=== PATIENT | male | born 1960 | race Caucasian/White ===

== ENCOUNTER → 2019-06-06 13:23 | Outpatient (BNVA) | payer MEDICARE, OTHER, SELFPAY | PROVIDERS: PCP Nurse Practitioner Family; Visit Provider Urology | DX: N99.89 Other postprocedural complications and disorders of genitourinary system (principal); R31.0 Gross hematuria; N40.1 Benign prostatic hyperplasia with lower urinary tract symptoms; N13.8 Other obstructive and reflux uropathy; R39.9 Unspecified symptoms and signs involving the genitourinary system | CPT/HCPCS: 81001 ==

== ENCOUNTER 2019-09-14 13:12 | Observation (INO) | payer MEDICARE, OTHER, SELFPAY ==
[2019-09-13 15:10] VITALS: BMI 32.1
[2019-09-14] VITALS (13 sets, daily range): BP systolic 117–154; BP diastolic 76–106; PULSE 52–80; RESP 12–20; TEMP 36.1–37.1; O2SAT 95–98
--- NOTE | 2019-09-14 10:59 | ANES.PREANE2 ---
Pre-Anesthetic Assessment Pre-Anesthetic Assessment: Height/Weight: Height 1.88 m Weight 113.398 kg Temp Pulse Resp BP Pulse Ox 98.4 F 72 18 141/95 96 09/14/19 10:27 09/14/19 10:27 09/14/19 10:27 09/14/19 10:27 09/14/19 10:27 Preop Diagnosis: BPH/obstruction Proposed Procedure: Operation Date: 09/14/19 11:30 Proposed Procedures p Transurethral Resection Of Prostate 35204/N40.1/N13.8(Not Applicable) - Ricky Mello MD s Cystoscopy 40578/N40.1/N13.8(Not Applicable) - Ricky Mello MD Familial anesthetic complications: None Was Beta Tiffanie taken within 24 hours: Yes Last intake: Intake NPO > 8 hrs Last Liquid Date 09/13/19 Last Solid Date 09/13/19 Social: Social History: No alcohol and No tobacco Exam: Pre-Anes Outpt Exam: alert, oriented x 3, clear to auscultation bilaterally and regular rate & rhythm Airway: Cervical ROM: WNL MP: 3 Additional comments: bridge (upper) Pulmonary: Pulmonary: None reported CV/HEM: CV/HEM: HTN : : None reported Hepatic: Hepatic: None reported GI: GI: None reported Metabolic: Metabolic: Hyperlipidemia, Morbid obesity and Thyroid Musc/skel: Musc/skel: None reported Neuropsych: Neuropsych: None reported Anesthetic Plan: ASA status: 2 Anesthesia: General Risk of > 500 ml blood loss (7ml/kg in children): No PFSH Anesthesia PFSH: Social History (Updated 09/06/19 @ 10:27 by NERY Warren) Smoking and tobacco status: never smoked Alcohol intake: current Alcohol intake frequency: few times a month Adopted: No Caregiver/support person: No Lives independently: No Household members: spouse Marital status: Current occupational status: retired History of recent travel: No Current gender identity: Male Data Anesthesia Cardiac Studies: No Data to Display
[2019-09-14 11:04] LABS: Basophils # 0.1 10^3/uL (0.0-0.1); Eosinophils # 0.2 10^3/uL (0.0-0.8); Hematocrit 51.8 % (42.0-52.0); Hemoglobin 17.1 g/dL (11.7-16.6); Lymphocytes # 2.1 10^3/uL (0.8-4.8); Mean Corpuscular Hemoglobin 30.3 pg (28.0-34.0); Mean Corpuscular Volume 91.7 fL (80-94); Mean Platelet Volume 10.2 fL (7.4-10.4); Monocytes # 0.5 10^3/uL (0.2-0.9); Monocytes % 8.9 %; Neutrophils # 3.1 10^3/uL (1.8-7.7); Neutrophils % 51.9 %; Nucleated Red Blood Cells % 0 %; Platelet Count 201 10^3/cmm (130-400); Red Blood Count 5.65 10^6/uL (4.1-5.3); Red Cell Distribution Width 11.8 % (12.1-15.1); White Blood Count 6.1 10^3/uL (4.0-10.0)
--- NOTE | 2019-09-14 11:34 | W.PM.OPSUD ---
Surgery/Procedure H&P Update DATE OF PROCEDURE: September 14, 2019 DATE H&P PERFORMED: 09/06/19 H&P UPDATE INFORMATION: I have reviewed H&P completed within last 30 days, I have examined patient prior to procedure and No changes to prior documentation PREOP DIAGNOSIS: BPH/obstruction PLANNED PROCEDURE: Operation Date: 09/14/19 11:30 Proposed Procedures p Transurethral Resection Of Prostate 32349/N40.1/N13.8(Not Applicable) - Ricky Mello MD s Cystoscopy 53331/N40.1/N13.8(Not Applicable) - Ricky Mello MD
--- NOTE | 2019-09-14 11:38 | PM.OP ---
Operative Report Date of procedure: September 14, 2019 Pre-op Diagnosis: BPH/obstruction Post-op diagnosis: same Procedure Done: Cystoscopy, transurethral resection/vaporization of the prostate Pathology: Prostate chips Surgeon: Riaz Anesthesia: General Urine output: Not measured Complications: None Condition: stable Disposition: PACU Brief History: Aleksandr is a very pleasant 59-year-old white male who I evaluated first in May of this year with complaints of progressive bladder outlet obstructive symptoms. Work-up included a cystoscopy that showed evidence of moderate to severe obstructive changes with significant trabeculation and a trilobar enlargement of the prostate with a tightly packed ball-valve type median lobe. At our initial visit we discussed medical versus surgical options and he elected an attempt at medical therapy. On follow-up earlier this month he had noted significant improvement on dual medical therapy of TAMSULOSIN previously increased to twice a day and the addition of FINASTERIDE. He had done a lot of research though and decided that he would prefer not to be on medicine long-term. For that reason he elected to proceed with surgical intervention and after thorough discussion of the options he elected TURP/TUVP. Procedure: After routine preoperative evaluation examination and obtaining of informed consent he was taken to the operating suite on 09/14/2019 where general anesthesia was administered without difficulty after appropriate timeout was performed, SCDs confirmed to be functioning, preoperative antibiotics administered, beta-nelson protocol confirmed. Prepped and draped in the usual sterile fashion in dorsolithotomy position pain careful attention to avoiding pressure points. 21 Anguillan cystoscope with 30 degree lens was introduced into the urethral meatus and advanced into the bladder under videoscopy. Bladder was systematically examined with findings as above. The orifices were well away from the bladder neck. Urethra was calibrated with Collins sounds and easily accommodated 30 Anguillan. 2% lidocaine jelly was instilled into the urethra and then the 25 Anguillan continuous flow resectoscope sheath with visual obturator in place was advanced into the bladder under videoscopy. The gyrus bipolar system was utilized for resection. Initial resection was begun with the supersect loop with focus on the intravesically protruding median lobe. It was resected down to the bladder neck pain careful attention to avoiding the area of the trigone. Most of the obstructing tissue was in fact the median lobe. The lateral lobes were then resected from the bladder neck out to the verumontanum first from the 12:00 to the 5 o'clock position and then the 12:00 to the 7 o'clock position. The remaining floor tissue was then resected in a similar fashion. Intermittently the button probe was utilized for fulguration and vaporization. There remained a small amount of tissue near the verumontanum this was carefully trimmed away avoiding straining distally to the verumontanum. The button probe was then utilized for sculpting of the prostate and obtaining meticulous hemostasis. All chips were removed from the bladder with the [employer] evacuator. At the completion of the procedure hemostasis was confirmed, the prostatic fossa was wide open, the orifices and tissue distal to the verumontanum was undisturbed. Bladder drained with a 20 Anguillan three-way Garcia catheter with 30 cc placed in the balloon. Light CBI was initiated. Tolerated the procedure well without complications and was awakened in the operating room and returned to the care of room in stable condition.
[2019-09-14] MEDS: levofloxacin-dextrose 5 % 500 MG/100 ML PREMIX 100 MG IV (11:58)
--- NOTE | 2019-09-14 13:05 | SUR.PHASEI ---
1302 PATIENT TO PACU AT THIS TIME FROM OR. RR EVEN AND UNLABORED. PWD. RESPONSIVE TO VERBAL STIMULI. CORADO CATH IN PLACE WITH CBI, CLEAR YELLOW URINE NOTED.
--- NOTE | 2019-09-14 13:27 | SUR.PHASEI ---
1327 PATIENT TO MED SURG AT THIS TIME FROM PACU. RR EVEN AND UNLABORED. CORADO CATH IN PLACE, DRAINING CLEAR, YELLOW URINE. NO DISTRESS. PAIN 09/23.
[2019-09-14] MEDS: dextrose 5%-ns + KCl 20 20 MEQ/1,000 ML BAG 100 MEQ IV (15:07)
[2019-09-14] MEDS: HYDROcodone-acetaminophen 5-325 mg Tablet 1 TAB PO ×2 (17:28→23:25)
[2019-09-14] MEDS: phenazopyridine 100 mg Tablet 200 MG PO (17:28)
[2019-09-14] MEDS: tamsulosin 0.4 mg Capsule PO (17:28)
--- NOTE | 2019-09-14 19:00 | PC.NURSE ---
Shift Assessment Pt has done well postop. Pt has had approximately 2400 mL of CBI fluid intake and 3250 mL output. Output has been clear with no evidence of blood or clots. Pain is well controlled with [place].
--- NOTE | 2019-09-14 20:29 | PC.NURSE ---
HS Meds Pt. refused HS Lipitor stating I took my cholesterol medicine this morning before coming into the hospital.
[2019-09-15] VITALS (7 sets, daily range): BP systolic 123–144; BP diastolic 81–93; PULSE 75–83; RESP 16–18; TEMP 36.6–37.4; O2SAT 93–96
[2019-09-15] MEDS: dextrose 5%-ns + KCl 20 20 MEQ/1,000 ML BAG 100 MEQ IV (03:53)
--- NOTE | 2019-09-15 06:35 | PC.NURSE ---
CBI Pt. has had CBI running extremely slow this shift. No blood clots noted, no manual irrigation. No complaints of pain.
--- NOTE | 2019-09-15 07:53 | ANE.PACU2 ---
 Inpatient post-anesthesia follow up: Airway intact: Yes Vital signs: Temperature 98.0 F Pulse Rate 75 Respiratory Rate 18 Blood Pressure 123/86 Pulse Oximetry 95 Oxygen Delivery Me thod [ Room Air Current Rate & Del blayne] Oxygen Delivery Me thod Room Air Oxygen Flow Rate Fraction of Inspir ed Oxygen Hydration adequate: Yes Nausea and vomiting: No Pain level: 1 Mental status: Baseline
[2019-09-15] MEDS: levothyroxine 150 mcg Tablet PO (08:33)
[2019-09-15] MEDS: tamsulosin 0.4 mg Capsule PO (08:33)
[2019-09-15] MEDS: metoprolol succinate ER (24 HR) 25 mg Tablet PO (08:33)
[2019-09-15] MEDS: phenazopyridine 100 mg Tablet 200 MG PO ×2 (08:37→13:00)
--- NOTE | 2019-09-15 08:56 | PC.NURSE ---
Ptient pedro removed. Pt shwetha well. Patient given Urinal and instructed to notify nursing when he woids. Six bottle urine collection set up in room. No clots, or noted blood in pedro bag or with removal of cath. Pericare given.
--- NOTE | 2019-09-15 10:10 | PC.CHAP ---
Pastoral Care Encounter/Spiritual Assessment Type of Contact [] Declined staff interpreter visit [] Patient/Family/Request visit [] Outpatient visit [] Follow-up visit [] Physician referral [] Code/Alert [x] Routine visit [] Staff referral [] Actively dying [] Patient sleeping [] Family support [] [] Out of room [] Palliative care [] [] Receiving care in room [] Pre-surgical visit [] Trauma [] Long length of stay [] ICU visit [] Other: Relational/Emotional Strength [] Patient feels connected with others/family/visitors/staff [] Distress [] Loneliness/isolation [] Abandonment Spirituality of Patient [] Person of Any [] Attends Roman Catholic of their Any [x] Believes in Prayer [] Reads Bible or Lutheran materials [] There are Spiritual issues to be addressed Agronomy Advisor Interventions [x] Prayer [] Active listening [] Non-anxious presence [] Spiritual/emotional support [] Crisis/trauma care [] Spiritual counseling [] Bereavement support [] Provided bereavement packet [] Provided Bible/devotional materials [] Provided toy/stuffed animal, coloring book to patient or family member [] Provided Communion [] Anointing/[place] [] Salvation [x] Completed spiritual assessment [] Other: Impact on Illness or Injury [] Angry [] Fearful [] Anxious [] Often cries [] Exhaustion [] Unable to work [] Unable to attend anabaptism [] Unable to walk/stand [] Unable to read [] Unable to drive [] Unable to eat/drink [] Unable to sleep [] Unable to be with family [] Patient intubated [] Other: Summary Patient going home today. Patient feels better Time spent with patient 10 min
--- NOTE | 2019-09-15 13:43 | PC.NURSE ---
Patient rec bladder scan after voiding.. 15mls of urine in total scanned. Pt denies any bladder distention, tenderness and pain. Six void cup collected.
--- NOTE | 2019-09-15 15:31 | PM.DCS ---
Discharge Providers Date of Admission: 09/14/19 13:12 Date of Discharge: September 15, 2019 Attending Provider at Admission: Ricky Mello MD Attending Provider at Discharge: Ricky Mello MD Primary Care Provider: Niru Guzman Reason for Visit Reason for Visit: Reason For Visit: PROSTATE Hospital Course Discharge Summary: Admitted on the day of the procedure which went well. A primary tissue obstructing his prostatic lumen was the median lobe which was resected down to the circular fibers of the bladder neck and to the floor of the prostate. He did have some lateral lobe hypertrophy which was vaporized. Did well during and after surgery. On postoperative day 1 he had a successful voiding trial with low PVR, adequate emptying, adequate stream and no significant bleeding. Discharged on postoperative day 1 afternoon in stable condition. Physical Exam Const: COMMON NORMALS: no apparent distress, alert and well nourished GENERAL APPEARANCE: well kempt and well developed ORIENTATION/CONSCIOUSNESS: not confused Resp: COMMON NORMALS: normal respiratory effort EFFORT & INSPECTION: No labored and No actively coughing Neuro: COMMON NORMALS: no focal motor deficits SENSORIUM/ORIENTATION: Yes alert Psych: COMMON NORMALS: mental status grossly normal APPEARANCE: Yes grossly normal and Yes well kempt ATTITUDE: Yes calm and Yes engaged Urinary Catheter Management^: 3-way Urethral CBI: Cath Placed During This Visit: yes, but has since been removed by the nurse Reason for Continuing Indwelling Catheter: Perioperative Use in Selected Surgeries Urinary Catheter Date of Insertion: 09/14/19 Urinary Catheter Time of Insertion: 12:00 Date Urinary Catheter Removed: 09/15/19 Time Urinary Catheter Discontinued: 09:50 Discharge Data Data Completed and Pending: Pending at discharge Category Date Time Status Pathology: Surgic al [PTH] Routine Pth 09/15/19 08:43 Received Vitals: Last Vital Signs Temp 99.3 F 09/15/19 11:34 Pulse 80 09/15/19 11:34 Resp 18 09/15/19 11:34 BP 124/81 09/15/19 11:34 Pulse Ox 96 09/15/19 11:34 Discharge Plan Discharge Patient Disposition: Home, Self-Care Condition: Stable Prescriptions: Continued acyclovir 5 % ointment 1 applic TOPICAL 6XD PRN (Reason: Pain) RF: 0 acyclovir 400 mg tablet 400 mg PO BID PRN (Reason: HERPES) RF: 0 simvastatin 40 mg tablet 40 mg PO QDAY RF: 0 levothyroxine 150 mcg capsule 150 mcg PO QDAY RF: 0 vitamin B complex [B Complex-Vitamin B12] Tablet 1 tab PO QDAY RF: 0 temazepam 15 mg capsule 15 mg PO DAILY RF: 0 omega-3 fatty acids 500 mg capsule 500 mg PO QDAY RF: 0 metoprolol succinate 25 mg tablet extended release 24 hr 25 mg PO QDAY RF: 0 tamsulosin 0.4 mg capsule 0.4 mg PO BID Qty: 180 RF: 3 Held vitamin E (dl, acetate) 400 unit capsule 400 unit PO QDAY RF: 0 Hold Instructions: Resume on 09/22/19. Discharge Orders: Discharge Order (Routine); Ordered 09/15/19 Ordered By: Ricky Mello Referrals: Ricky Mello MD [Physician] - (3 months with aua score and pvr) Discharge Diet: Usual diet Discharge Activity: Limit activity as instructed Discharge Attestations Time Spent in Discharge Care*: less than 30 min Quality Metrics Clinical Quality Measures During this hospital stay, did patient experience: None Coding Level of Care Code Acute Marble Installation Helper for Maddie Stone
== END 2019-09-15 16:55 | disposition home or self-care (01) ==
LOC: MEDSURG 13:13
PROVIDERS: Admitting Provider Urology; PCP Nurse Practitioner Family; Visit Provider Urology
PROC: 0VT08ZZ Resection of Prostate, Via Natural or Artificial Opening Endoscopic (ICD-10-PCS; CPT 52601; principal; 2019-09-14 11:30)
PROC: 0TJB8ZZ Inspection of Bladder, Via Natural or Artificial Opening Endoscopic (ICD-10-PCS; CPT 52000; 2019-09-14 11:30)
DX: N40.1 Benign prostatic hyperplasia with lower urinary tract symptoms (principal); N13.8 Other obstructive and reflux uropathy; I10 Essential (primary) hypertension; E78.5 Hyperlipidemia, unspecified; E66.01 Morbid (severe) obesity due to excess calories; Z68.32 Body mass index [BMI] 32.0-32.9, adult
CPT/HCPCS: 52601; 12345; 36415; 85025; 88305; 96361; 96365; G0378; J1956; J2001; J2370; J2704; J3010; J3490

== ENCOUNTER → 2019-12-18 08:55 | Outpatient (BNVA) | payer MEDICARE, OTHER, SELFPAY | PROVIDERS: PCP Nurse Practitioner Family; Visit Provider Urology | DX: N40.1 Benign prostatic hyperplasia with lower urinary tract symptoms (principal); N13.8 Other obstructive and reflux uropathy; R39.9 Unspecified symptoms and signs involving the genitourinary system | CPT/HCPCS: 81001 ==

== ENCOUNTER → 2020-06-19 08:33 | Outpatient (BNVA) | payer MEDICARE, OTHER, SELFPAY | PROVIDERS: PCP Nurse Practitioner Family; Visit Provider Urology | DX: N40.1 Benign prostatic hyperplasia with lower urinary tract symptoms (principal); N13.8 Other obstructive and reflux uropathy | CPT/HCPCS: 81003 ==

== ENCOUNTER → 2020-08-29 08:53 | Outpatient (BNVA) | payer MEDICARE, OTHER, SELFPAY | PROVIDERS: PCP Nurse Practitioner Family; Referring Provider Family Medicine; Visit Provider Specialist | DX: M65.332 Trigger finger, left middle finger (principal) | CPT/HCPCS: 73130; 87635 ==

== ENCOUNTER 2020-09-03 05:56 | Day surgery (SDC) | payer MEDICARE, OTHER, SELFPAY ==
[2020-09-02 15:22] VITALS: BMI 29.9
[2020-09-03] VITALS (7 sets, daily range): BP systolic 136–174; BP diastolic 95–109; PULSE 64–72; RESP 16–18; TEMP 36.2–36.6; O2SAT 92–98
--- NOTE | 2020-09-03 06:27 | ANES.PREANE2 ---
Pre-Anesthetic Assessment Pre-Anesthetic Assessment: Height/Weight: Height 1.91 m Weight 108.862 kg Preop Diagnosis: Left long trigger finger Proposed Procedure: Operation Date: 09/03/20 07:00 Proposed Procedures p Trigger Finger Release left long(Left) - Niru Juarez MD Was Beta Tiffanie taken within 24 hours: Yes Was Clonidine taken within 24 hours: N/A Social: Social History: No alcohol and No tobacco Exam: Pre-Anes Outpt Exam: alert, oriented x 3, clear to auscultation bilaterally and regular rate & rhythm Airway: Submandibular: WNL Cervical ROM: WNL MP: 2 Dentition: Full CV/HEM: CV/HEM: HTN GI: GI: GERD Metabolic: Metabolic: Morbid obesity and Thyroid Anesthetic Plan: ASA status: 3 Anesthesia: MAC and Regional (specify below) (Qiana clark) Risk of > 500 ml blood loss (7ml/kg in children): No PFSH Anesthesia PFSH: Medical History BPH with obstruction/lower urinary tract symptoms GERD (gastroesophageal reflux disease) Gilbert disease Gross hematuria Hemochromatosis Hyperlipemia Hypothyroid Insomnia Lower urinary tract symptoms (LUTS) Surgical History H/O neck surgery History of back surgery History of foot surgery S/P appendectomy Status post transurethral resection of prostate Family History Father , AT AGE 70 DROWNED,BOATING ACCIDENT No problems noted. Mother , AT AGE 72 SMALL CELL LUNG CANCER Cancer Social History Smoking and tobacco status: never smoked Alcohol intake: current Alcohol intake frequency: few times a month Adopted: No Caregiver/support person: No Lives independently: No Household members: spouse Marital status: Current occupational status: retired History of recent travel: No Current gender identity: Male Data Anesthesia Cardiac Studies: No Data to Display
[2020-09-03] MEDS: acetaminophen 1,000 MG/100 ML PIGGYBACK 400 MG IV (06:50)
[2020-09-03] MEDS: sodium chloride 0.9% 1,000 ML 30 ML IV (06:50)
--- NOTE | 2020-09-03 06:50 | W.PM.OPSUD ---
Surgery/Procedure H&P Update DATE OF PROCEDURE: September 03, 2020 DATE H&P PERFORMED: 08/29/20 H&P UPDATE INFORMATION: I have reviewed H&P completed within last 30 days, I have examined patient prior to procedure, No changes to prior documentation and H&P is in [facility] EMR on date indicated PREOP DIAGNOSIS: Left long trigger finger PLANNED PROCEDURE: Operation Date: 09/03/20 07:00 Proposed Procedures p Trigger Finger Release left long(Left) - Niru Juarez MD Related Problem List Diagnoses (1) Trigger finger, left middle finger:
--- NOTE | 2020-09-03 08:15 | PM.OP ---
Operative Report Date of procedure: September 03, 2020 Pre-op Diagnosis: Left long trigger finger Post-op diagnosis: same Procedure Done: Left long finger trigger release Implants: None Pathology: none sent Surgeon: Niru Juarez Senior Research Executive: None Anesthesia: MAC (With Marquette block) Estimated blood loss (mL): 5 Tourniquet time (min): 27 Tourniquet time: 250 mmHg IV fluids (mL): 700 Urine output (mL): 0 Complications: None Findings: Triggering left long trigger finger. No obvious tendon damage Condition: stable Disposition: PACU (Then to same day and discharged home) Brief History: This 60-year-old gentleman presented with complaints of significant triggering of his left long finger. This was painful for him and was limiting his activities. He wished to proceed with operative intervention in the form of trigger finger release. Procedure: Patient was brought to the operating theater. He was placed on the operating room table. A Marquette block was administered without difficulty. Patient tolerated it well. Ancef 2 g was administered as well as 1 g of Ofirmev. A tourniquet was placed high on the arm and was elevated for the Marquette block. This followed exsanguination of the arm. Tourniquet time was 27 minutes at 250 mmHg. Surgical pause was performed prior to commencement of the surgical procedure. At the time of the surgical pause we identified the site and side of surgery. We also identified the patient's identity and appropriate administration of IV antibiotics. Following the surgical pause, an incision was madealong the distal palmar crease beneath the long finger. Dissection continued through the skin to the subcutaneous tissues using a scalpel. Blunt dissection was then utilized to spread soft tissues and allow access to the A1 beatriz which was easily identified. It was then incised longitudinally and sharply using a knife. This was accomplished without difficulty and atraumatically. Once the A1 beatriz was released, tendons were brought up out of the wound and evaluated. There were no gross masses on the tendons. Tendons were returned to normal position. We then irrigated the wound and subsequently closed it with 3-0 nylon with an interrupted mattress type suture. Following closure of the wound, the wound was injected with ropivacaine plain into the subcutaneous tissues as a local anesthetic. Sterile dressing was then placed consisting of OpSite, fluffed fluffs, sterile soft roll, and an Sadiq wrap. The patient was returned to recovery in satisfactory condition. He will be discharged home to follow-up with me in the office. There were no complications and no specimens. Associated Problem List Diagnoses (1) Trigger finger, left middle finger:
--- NOTE | 2020-09-03 17:16 | ANE.PACU2 ---
Inpatient post-anesthesia follow up: Airway intact: Yes Vital signs: Temperature 97.9 F Pulse Rate 64 Respiratory Rate 16 Blood Pressure 144/100 Pulse Oximetry 97 Oxygen Delivery Me thod Room Air Oxygen Flow Rate Fraction of Inspir ed Oxygen Hydration adequate: Yes Nausea and vomiting: No Pain level: 1 Mental status: Baseline
== END 2020-09-03 08:30 | disposition home or self-care (01) ==
PROVIDERS: PCP Nurse Practitioner Family; Visit Provider Specialist
PROC: (CPT 26055; principal; 2020-09-03 07:00)
DX: M65.332 Trigger finger, left middle finger (principal); I10 Essential (primary) hypertension; K21.9 Gastro-esophageal reflux disease without esophagitis; E66.01 Morbid (severe) obesity due to excess calories; Z68.30 Body mass index [BMI] 30.0-30.9, adult; N40.1 Benign prostatic hyperplasia with lower urinary tract symptoms; N13.8 Other obstructive and reflux uropathy; E78.5 Hyperlipidemia, unspecified; E03.9 Hypothyroidism, unspecified
CPT/HCPCS: 26055; 96365; J0690; J2250; J2704; J3010; J3490; J7030

== ENCOUNTER 2022-07-23 11:08 | Outpatient (CLI) | payer MEDICARE, OTHER, SELFPAY ==
[2022-07-28 18:46] LABS: Calcium-Oxalate 1.93 (<2.00); Uric Stone 2.33 (<2.00); Urine Ammonia 24 Hour 33 mEq/day (14-62); Urine Citric Acid 24 Hour 820 mg/day (>320); Urine Phosphorus 24 Hour 1289 mg/day (<1100); Urine Potassium 24 Hour 53 mEq/day (19-135); Urine Sulfate 24 Hour 19 mmol/day (<30)
== END 2022-07-23 11:09 | disposition home or self-care (01) ==
LOC: LAB 11:31
PROVIDERS: PCP Nurse Practitioner Family; Visit Provider Physician Assistant
DX: N20.1 Calculus of ureter (principal)
CPT/HCPCS: 81003; 82131; 82140; 82340; 82436; 82507; 82570; 83735; 83935; 84300

== ENCOUNTER → 2023-07-27 15:12 | Outpatient (BNVA) | payer MEDICARE, OTHER, SELFPAY | PROVIDERS: PCP Nurse Practitioner Family; Visit Provider Orthopaedic Surgery | DX: M54.9 Dorsalgia, unspecified (principal); M48.062 Spinal stenosis, lumbar region with neurogenic claudication | CPT/HCPCS: 72110; 99204 ==

== ENCOUNTER → 2023-09-09 08:10 | Outpatient (BNVA) | payer MEDICARE, OTHER, SELFPAY | PROVIDERS: PCP Nurse Practitioner Family; Visit Provider Orthopaedic Surgery | DX: M54.9 Dorsalgia, unspecified (principal); M48.062 Spinal stenosis, lumbar region with neurogenic claudication | CPT/HCPCS: 80053; 81001; 85025; 99214 ==

== ENCOUNTER 2023-10-08 05:39 | Day surgery (SDC) | payer MEDICARE, OTHER, SELFPAY ==
[2023-10-08] VITALS (10 sets, daily range): BP systolic 119–136; BP diastolic 79–95; PULSE 69–83; RESP 12–18; TEMP 36.1–36.7; O2SAT 92–97; BMI 31.2
--- NOTE | 2023-10-08 | XR_ITS ---
WS: [id number] Exam: XR lumbar spine 2-3V* [id number] Date/Time of Exam: 10/08/2023 12:00 AM Reason For Exam: ANA PICS Intraoperative AP C-arm images of the lower lumbar spine are submitted. Images were obtained for preo p localization purposes.
[2023-10-08] MEDS: sodium chloride 0.9% 1,000 ML 30 ML IV (06:35)
--- NOTE | 2023-10-08 06:37 | ANES.PREANE2 ---
Pre-Anesthetic Assessment Height/Weight: Height 1.91 m Weight 113.398 kg Temp Pulse Resp BP Pulse Ox O2 Del Method 98.0 F 69 18 136/84 96 Room Air 10/08/23 06:12 10/08/23 06:12 10/08/23 06:12 10/08/23 06:12 10/08/23 06:12 10/08/23 06:13 Preop Diagnosis: Lumbar stenosis neurogenic claudication Operation Date: 10/08/23 07:00 Proposed Procedures p Lumbar Spine Decompression L3-4, L4-5(Not Applicable) - Isaak Grimaldo, DO Familial anesthetic complications: None Was Beta Tiffanie taken within 24 hours: N/A Was Clonidine taken within 24 hours: N/A Last intake: Intake Last Liquid Date 10/07/23 Last Liquid Time 19:00 Last Solid Date 10/07/23 Last Solid Time 19:00 Social No alcohol and No tobacco Exam alert, oriented x 3, clear to auscultation bilaterally and regular rate & rhythm Airway Mallampati: Class II Dentition: other (bridge) Pulmonary Asthma (hasn't required prn inhaler use in several days) CV/HEM Hypertension GI Gastroesophageal Reflux Disease Metabolic Hyperlipidemia and Thyroid Disease Anesthetic Plan ASA status: 2 Anesthesia: General Risk of > 500 ml blood loss (7ml/kg in children): No Medications/Allergies Home Medications Medication Instructions Recorded Confirmed Last Taken Type metoprolol succinate 25 mg 25 mg PO QDAY 06/06/19 10/08/23 10/08/23 04:00 History tablet,extended release 24 hr vitamin B complex (B 1 tab PO QDAY 06/06/19 10/07/23 10/07/23 History Complex-Vitamin B12 tablet) temazepam 15 mg capsule 15 mg PO .prn 12/18/19 10/07/23 10/07/23 History levothyroxine 150 mcg capsule 137 mcg PO QDAY 06/19/20 10/07/23 10/07/23 History omeprazole 20 mg capsule,delayed 20 mg PO DAILY 09/02/20 10/07/23 10/07/23 History release albuterol sulfate 90 mcg/actuation 2 puff inhalation Q6H PRN Allergy 10/01/23 10/07/23 10/06/23 History aerosol inhaler Symptoms atorvastatin 40 mg tablet 40 mg PO DAILY 10/01/23 10/07/2324 History cetirizine 10 mg tablet 10 mg PO DAILY 10/01/23 10/07/23 10/07/23 History divalproex 500 mg tablet,extended 500 mg PO DAILY 10/01/23 10/07/23 10/06/23 History release 24 hr losartan 50 mg tablet 50 mg PO DAILY 10/01/23 10/07/23 10/07/23 History valacyclovir 500 mg tablet 500 mg PO DAILY 10/01/23 10/07/23 10/07/23 History Allergies Allergy/AdvReac Type Severity Reaction Status Date / Time No Known Allergies Allergy Verified 10/08/23 06:06 Current Medications Generic Name Dose Route Start Last Admin Trade Name Freq PRN Reason Stop Dose Admin Sodium Chloride 1,000 mls @ 30 mls/hr 10/08/23 06:00 10/08/23 06:35 Sodium Chloride 0.9% IV 10/09/23 05:59 30 mls/hr .Q24H ARIADNA Administration PFSH Anesthesia Medical History GERD (gastroesophageal reflux disease) Hypothyroid Hyperlipemia Hemochromatosis Gilbert disease Insomnia BPH with obstruction/lower urinary tract symptoms Gross hematuria Lower urinary tract symptoms (LUTS) Surgical History History of foot surgery History of back surgery H/O neck surgery S/P appendectomy Status post transurethral resection of prostate Family History Father , AT AGE 70 DROWNED,BOATING ACCIDENT No problems noted. Mother , AT AGE 72 SMALL CELL LUNG CANCER Cancer Social History Smoking and tobacco/nicotine status: never used tobacco/nicotine Alcohol intake: current Alcohol intake frequency: few times a month Substance/Drug Use: never Adopted: No Caregiver/support person: No Lives independently: No Household members: spouse Marital status: Current occupational status: retired Current gender identity: Male Data Anesthesia Cardiac Studies: No Data to Display
--- NOTE | 2023-10-08 06:44 | W.PM.OPSUD ---
Surgery/Procedure H&P Update DATE OF PROCEDURE: October 08, 2023 DATE H&P PERFORMED: 10/01/23 H&P UPDATE INFORMATION: I have reviewed H&P completed within last 30 days, I have examined patient prior to procedure and No changes to prior documentation PREOP DIAGNOSIS: Lumbar stenosis neurogenic claudication PLANNED PROCEDURE: Operation Date: 10/08/23 07:00 Proposed Procedures p Lumbar Spine Decompression L3-4, L4-5(Not Applicable) - Isaak Grimaldo DO
[2023-10-08] MEDS: ceFAZolin 2,000 MG in sodium chloride 0.9% (plus) 50 ML 100 MG IV (06:59)
[2023-10-08] MEDS: lidocaine-epi 1% 20 mL INJ INJECTION (07:39)
--- NOTE | 2023-10-08 08:45 | PM.OP ---
Operative Report Date of procedure: October 08, 2023 Pre-op diagnosis: Lumbar stenosis with neurogenic claudication Post-op diagnosis: same Procedure done: 1. L3-4 laminectomy with partial facetectomy 2. L4-5 laminectomy with partial facetectomy Surgeon: Isaak Grimaldo DO Estimated blood loss (mL): 10 Procedure: 1. L3-4 laminectomy with partial facetectomy 2. L4-5 laminectomy with partial facetectomy Patient is brought to the operative suite. After undergoing anesthesia they are placed in the prone position. All areas of impingement are well padded. Patient is then prepped and draped in the normal sterile fashion. A skin incision is made over the L3/4 level. This is confirmed under c-arm guidance. A series of dilators are passed and the tubular retractor is docked on the L3 lamina. A bovie is used to clear the soft tissue off the lamina and the L 3/4 facet joint. A high speed agustin is then used to perform the laminectomy and take down the medial aspect of the L 3/4 facet joint. A kerrison rongeure was then used to take down the remaining lamina and smooth the edge of the laminectomy up to the point where the ligamentum flavum attaches. Attention was then brought to the medial aspect of the facet joint. The remaining medial aspect of the superior and inferior aspect of the facet joint were taken down with the kerrison from the pedicle of L3 to L 4. The facet joint had significant hypertrophy. Attention was then brought to the Ligamentum Flavum. The ligament was taken down from the lamina of L3 to L4 and out medially to the remaining facet joint. The ligament was thick. The dura was then exposed. The dura was in good repair. The L3 nerve was then traced with a curette out the L3/4 foramen and found to be adequately decompressed. The L4 nerve was traced with a curette around the L4 pedicle. The lateral recess was opened with a kerrison helping to further decompress the L4 nerve. Wound is then irrigated copiously with saline and surgiflo is used to stop any bleeding. The tubular retractor is removed and the A skin incision is made over the L4/5 level. This is confirmed under c-arm guidance. A series of dilators are passed and the tubular retractor is docked on the L4 lamina. A bovie is used to clear the soft tissue off the lamina and the L 4/5 facet joint. A high speed agustin is then used to perform the laminectomy and take down the medial aspect of the L 4/5 facet joint. A kerrison rongeure was then used to take down the remaining lamina and smooth the edge of the laminectomy up to the point where the ligamentum flavum attaches. Attention was then brought to the medial aspect of the facet joint. The remaining medial aspect of the superior and inferior aspect of the facet joint were taken down with the kerrison from the pedicle of L4 to L 5. The facet joint had significant hypertrophy. Attention was then brought to the Ligamentum Flavum. The ligament was taken down from the lamina of L4 to L5 and out medially to the remaining facet joint. The ligament was thick with some scar. The dura was then exposed. The dura was in good repair. The L4 nerve was then traced with a curette out the L4/5 foramen and found to be adequately decompressed. The L5 nerve was traced with a curette around the L5 pedicle. The lateral recess was opened with a kerrison helping to further decompress the L5 nerve. Wound is then irrigated copiously with saline and surgiflo is used to stop any bleeding. The tubular retractor is removed and the wound is closed with vicryl and monocryl suture. Glue is then used to protect the wound. A sterile dressing is then placed. Patient was then placed in the supine position and transferred to the PACU in stable condition.
[2023-10-08] MEDS: HYDROcodone-acetaminophen 5-325 mg Tablet 1 TAB PO (09:34)
--- NOTE | 2023-10-08 09:55 | ANE.PACU2 ---
Inpatient post-anesthesia follow up: Airway intact: Yes Vital signs: Temperature 97.0 F Pulse Rate 76 Respiratory Rate 16 Blood Pressure 130/95 Pulse Oximetry 94 Oxygen Delivery Me thod Room Air Oxygen Flow Rate 6 Fraction of Inspir ed Oxygen Hydration adequate: Yes Nausea and vomiting: No Pain level: 1 Mental status: Baseline
== END 2023-10-08 09:55 | disposition home or self-care (01) ==
PROVIDERS: PCP Nurse Practitioner Family; Visit Provider Orthopaedic Surgery
PROC: (CPT 63005; principal; 2023-10-08 07:00)
DX: M48.062 Spinal stenosis, lumbar region with neurogenic claudication (principal); J45.909 Unspecified asthma, uncomplicated; I10 Essential (primary) hypertension; K21.9 Gastro-esophageal reflux disease without esophagitis; E78.5 Hyperlipidemia, unspecified; E03.9 Hypothyroidism, unspecified; N40.1 Benign prostatic hyperplasia with lower urinary tract symptoms; N13.8 Other obstructive and reflux uropathy
CPT/HCPCS: 63047; 63048; 72100; 76000; J0690; J1100; J2250; J2371; J2405; J2704; J2710; J3010; J3490; J7030

== ENCOUNTER → 2023-10-21 13:05 | Outpatient (BNVA) | payer MEDICARE, OTHER, SELFPAY | PROVIDERS: PCP Nurse Practitioner Family; Visit Provider Orthopaedic Surgery | DX: Z98.890 Other specified postprocedural states (principal) | CPT/HCPCS: 99024 ==

== ENCOUNTER → 2023-11-16 09:57 | Outpatient (BNVA) | payer MEDICARE, SELFPAY | PROVIDERS: PCP Nurse Practitioner Family; Visit Provider Orthopaedic Surgery | DX: Z98.890 Other specified postprocedural states (principal) | CPT/HCPCS: 99024 ==